=== PATIENT | male | born 1945 | race Caucasian/White ===

== ENCOUNTER 2018-05-24 21:12 | Emergency (ER) | payer OTHER ==
--- NOTE | 2018-05-24 22:04 | EDPHY ---
H & P Stated Complaint: fall facial lac hand abrasion Time Seen by Provider: 05/24/18 22:17 HPI/ROS: HPI CHIEF COMPLAINT: Mechanical trip and fall, head injury HISTORY OF PRESENT ILLNESS: This patient is 73-year-old male, is otherwise healthy, takes baby aspirin daily, presents emergency room after a mechanical trip and fall around 730 at night is now 10:00 p.m. At night. Patient was walking down a steep embankment and tripped on a flag stone this caused him to go forward with head strike against the ground. Questionable LOC. No seizure activity. No bowel bladder incontinence. Did not bite his tongue. Patient remembers the event. He did strike his left head, left forehead on the ground. He has some left periorbital swelling. He additionally has abrasion over his nasal bridge an abrasion on the left temporal region from his glasses. He does report that he had multiple alcoholic beverages tonight. But did not feel intoxicated. Patient arrived here by private vehicle Past Medical History: Denies significant medical history Past Surgical History: Left knee surgery, cervical fusion Social History: Denies drugs, tobacco. Does endorse 4 alcoholic beverages tonight. Family History: Noncontributory ROS REVIEW OF SYSTEMS: A comprehensive 10 point review of systems is otherwise negative aside from elements mentioned in the history of present illness. Exam Constitutional GCS 15, alert or x4 triage nursing summary reviewed, vital signs reviewed, awake/alert. Eyes normal conjunctivae and sclera, EOMI, PERRLA. HENT head/neck: Ecchymosis noted over the left orbit, additionally abrasions left temporal region and over the nasal bridge. No laceration. Midface stable. Left forehead abrasion present, no midline cervical spine pain or step- offs or crepitus on exam, otherwise atraumatic head and neck exam moist mucus membranes, no epistaxis, neck supple/ no meningismus, no raccoon eyes. Respiratory clear to auscultation bilaterally, normal breath sounds, no respiratory distress, no wheezing. Cardiovascular rate normal, regular rhythm, no murmur, no edema, distal pulses normal. Gastrointestinal soft, non-tender, no rebound, no guarding, normal bowel sounds, no distension, no pulsatile mass. Genitourinary no CVA tenderness. Musculoskeletal no midline vertebral tenderness, full range of motion, no calf swelling, no tenderness of extremities, no meningismus, good pulses, neurovascularly intact. Skin abrasions to face see above, abrasion to left knee. Abrasion to right hand. Neurologic awake, alert and oriented x 3, AAOx3, moves all 4 extremities equally, motor intact, sensory intact, CN II-XII intact, normal cerebellar, normal vision, normal speech. Psychiatric normal mood/affect. Heme/Lymph/Immune no lymphadenopathy. Differential Diagnosis: Includes but is not limited to in a particular order multiple abrasions, soft tissue injury, multiple contusions, need for tetanus shot, closed head injury, intracranial bleed, subdural, epidural, traumatic subarachnoid, orbital fracture, soft tissue contusion, hematoma Medical Decision Making: Plan for this patient CT head without contrast to make sure there is not acute traumatic injury, update tetanus shot, clean his abrasions and re-evaluate. Re-evaluation: CT head without contrast shows no acute blood in the brain, however very subtle left inferior orbital rim fracture and a left superior posterior maxillary sinus wall fracture. Very small. Otherwise atraumatic head scan. Called to me by Dr. Regan. Updated patient at bedside about injuries. Recommend ice, they may follow up with ENT as needed. Fractures are minimal. Source: Patient - Personal History Current Tetanus/Diphtheria Vaccine: Unsure Current Tetanus Diphtheria and Acellular Pertussis (TDAP): Unsure - Medical/Surgical History Hx Asthma: No Hx Chronic Respiratory Disease: No Hx Diabetes: No Hx Cardiac Disease: No Hx Renal Disease: No Hx Cirrhosis: No Hx Alcoholism: No Hx HIV/AIDS: No Hx Splenectomy or Spleen Trauma: No Other PMH: l tka. cervical spine surgery - Social History Smoking Status: Never smoked Constitutional: Initial Vital Signs Temperature (C) 36.4 C 05/24/18 21:40 Heart Rate 81 05/24/18 21:40 Respiratory Rate 18 05/24/18 21:40 Blood Pressure 132/79 H 05/24/18 21:40 O2 Sat (%) 95 05/24/18 21:40 O2 Delivery Mode Room Air Allergies/Adverse Reactions: No Known Allergies Allergy (Unverified 05/24/18 21:39) Home Medications: Medication Instructions Recorded Acyclovir 05/24/18 Amlodipine Besylate 05/24/18 Losartan Potassium 100 mg PO 05/24/18 Medical Decision Making - Diagnostics Imaging Results: Imaging Impressions Head CT 05/24/18 22:16 Impression: 1. There is no acute intracranial abnormality identified on this unenhanced CT evaluation. 2. There is some blood in the dependent portion of the left upper left maxillary sinus, and there is a subtle torus type fracture involving the posterior upper wall of the left maxillary sinus, as well as a potential subtle fracture through the anterior and posterior margins of the left inferior orbital rim. There is also some mild left periorbital edema. If there is further clinical concern regarding the patient's symptoms, MR imaging is suggested, if not otherwise contraindicated. Findings were discussed with Varinder Evans MD at 23:10, on 05/24/2018. - Data Points Medications Given: Discontinued Medications Diphtheria/Tetanus/Acell Pertussis (Boostrix) 0.5 ml IM .ONCE ONE Stop: 05/24/18 22:17 Last Admin: 05/24/18 22:44 Dose: 0.5 ml Departure - Departure Disposition: Home, Routine, Self-Care Clinical Impression: Abrasion Head injury Qualifiers: Encounter type: initial encounter Qualified Code(s): S09.90XA - Unspecified injury of head, initial encounter Contusion Qualifiers: Encounter type: initial encounter Contusion area: head Contusion of head detail : scalp Qualified Code(s): S00.03XA - Contusion of scalp, initial encounter Maxillary fracture Qualifiers: Encounter type: initial encounter Fracture type: closed Laterality: left Qualified Code(s): S02.40DA - Maxillary fracture, left side, initial encounter for closed fracture Orbital fracture Qualifiers: Encounter type: initial encounter Fracture type: closed Qualified Code(s): S02.80XA - Fracture of other specified skull and facial bones, unspecified side , initial encounter for closed fracture Condition: Good Instructions: Concussion (ED), Contusion in Adults (ED), Hematoma (ED), Facial Fracture (ED) Additional Instructions: 1. Return to the emergency room if you have worsening symptoms includes severe headache, vomiting. 2. Take it easy and rest over the next 48 hr 3. Alternate Tylenol Motrin for pain control. Referrals: NONE *PRIMARY CARE P,. [Primary Care Provider] - As per Instructions Zakiya Goncalves MD [Medical Doctor] - As per Instructions Bhumi Bhatia MD [Medical Doctor] - As per Instructions
[2018-05-24] MEDS ORDERED: TDAP ADULT 0.5 ML INJ (BOOSTRIX) IM ONE (22:16)
[2018-05-24 23:43] VITALS: BP 129/85
== END 2018-05-24 23:39 | disposition home or self-care (01) ==
DX: S02.40DA Maxillary fracture, left side, initial encounter for closed fracture (principal); S02.80XA Fracture of other specified skull and facial bones, unspecified side, initial encounter for closed fracture; S00.03XA Contusion of scalp, initial encounter; S00.81XA Abrasion of other part of head, initial encounter; S80.212A Abrasion, left knee, initial encounter; S60.511A Abrasion of right hand, initial encounter; Z23 Encounter for immunization; W17.81XA Fall down embankment (hill), initial encounter; Y92.89 Other specified places as the place of occurrence of the external cause; Y99.8 Other external cause status; Y93.01 Activity, walking, marching and hiking